=== PATIENT | female | born 1995 | race Caucasian/White ===

== ENCOUNTER 2019-01-19 21:10 | Emergency (ER) | payer BC, OTHER ==
[~2019-01-19] VITALS: Ht 175.3 cm; Wt 63.5 kg
[2019-01-19 21:38] LABS: BASOPHILS # (AUTO) 0.1 10^3/uL (0.0-0.1); BASOPHILS % (AUTO) 1 % (0-10); EOSINOPHILS # (AUTO) 0.2 10^3/uL (0.0-0.3); EOSINOPHILS % (AUTO) 2 % (0-10); HEMATOCRIT 43 % (35-52); HEMOGLOBIN 14.2 G/DL (11.5-16.0); LYMPHOCYTES # (AUTO) 3.1 X 10^3 (1.0-4.0); LYMPHOCYTES % (AUTO) 27 % (12-44); MEAN CORPUSCULAR HEMOGLOBIN 32 PG (25-34); MEAN CORPUSCULAR HGB CONC 33 G/DL (32-36); MEAN CORPUSCULAR VOLUME 95 FL (80-99); MEAN PLATELET VOLUME 9.5 FL (7.4-10.4); MONOCYTES # (AUTO) 0.9 X 10^3 (0.0-1.0); MONOCYTES % (AUTO) 7 % (0-12); NEUTROPHILS # (AUTO) 7.3 X 10^3 (1.8-7.8); NEUTROPHILS % (AUTO) 64 % (42-75); PLATELET COUNT 328 10^3/uL (130-400); RED CELL DISTRIBUTION WIDTH 12.2 % (10.0-14.5); WHITE BLOOD COUNT 11.6 10^3/uL (4.3-11.0)
[2019-01-19 21:40] LABS: BILIRUBIN,URINE NEGATIVE (NEGATIVE); CLARITY,URINE CLEAR; COLOR,URINE YELLOW; GLUCOSE, URINE (UA) NEGATIVE (NEGATIVE); KETONES,URINE NEGATIVE (NEGATIVE); LEUKOCYTE ESTERASE ,URINE NEGATIVE (NEGATIVE); NITRITE,URINE NEGATIVE (NEGATIVE); PH,URINE 7 (5-9); PROTEIN,URINE 1+ (NEGATIVE); UROBILINOGEN,URINE NORMAL (NORMAL)
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
[2019-01-19 21:58] LABS: ALANINE AMINOTRANSFERASE 14 U/L (0-55); ALBUMIN 4.9 GM/DL (3.2-4.5); ALKALINE PHOSPHATASE 64 U/L (40-136); AMYLASE 39 U/L (25-125); BILIRUBIN,TOTAL 0.6 MG/DL (0.1-1.0); BUN/CREATININE RATIO 8; CALCIUM 9.9 MG/DL (8.5-10.1); CARBON DIOXIDE 21 MMOL/L (21-32); CHLORIDE 109 MMOL/L (98-107); CREATININE SERUM 0.83 MG/DL (0.60-1.30); GFR ESTIMATED > 60; GLUCOSE 100 MG/DL (70-105); POTASSIUM 3.5 MMOL/L (3.6-5.0); SALICYLATE < 5.0 MG/DL (5.0-20.0); SODIUM 144 MMOL/L (135-145); TOTAL PROTEIN 7.3 GM/DL (6.4-8.2)
[2019-01-19 22:04] LABS: AMPHETAMINE SCREEN, URINE NEGATIVE (NEGATIVE); BACTERIA,URINE TRACE /HPF; BARBITURATE SCREEN URINE NEGATIVE (NEGATIVE); BENZODIAZEPINES SCREEN URINE NEGATIVE (NEGATIVE); CANNABINOID SCREEN, URINE NEGATIVE (NEGATIVE); COCAINE SCREEN URINE NEGATIVE (NEGATIVE); METHADONE STAT NEGATIVE (NEGATIVE); METHAMPHETAMINE SCREEN URINE S NEGATIVE (NEGATIVE); OPIATE SCREEN URINE NEGATIVE (NEGATIVE); OXYCODONE STAT NEGATIVE (NEGATIVE); PROPOXYPHENE STAT NEGATIVE (NEGATIVE); TRICYCLIC ANTIDEPRESSANTS SCRE NEGATIVE (NEGATIVE)
[2019-01-19 22:18] LABS: TSH (THYROID ANALYZER) 0.94 UIU/ML (0.35-4.94)
[2019-01-19 22:24] LABS: ACETAMINOPHEN < 10 UG/ML (10-30)
[2019-01-19] MEDS ORDERED: hydrOXYzine (VISTARIL/ATARAX) 25 MG capsule/tablet PO ONE (22:30)
[2019-01-19] MEDS ORDERED: hydrOXYzine (VISTARIL/ATARAX) 25 MG capsule/tablet ONE (22:36)
[2019-01-19 22:57] VITALS: BP 122/88
[2019-01-20] MEDS ORDERED: VENL75CA PO (11:41)
[2019-01-20] MEDS ORDERED: HYDR50TA76 PO (11:41)
== END 2019-01-19 22:58 | disposition home or self-care (01) ==
LOC: ER 21:12
DX: F14.10 Cocaine abuse, uncomplicated (principal); F12.10 Cannabis abuse, uncomplicated; F15.10 Other stimulant abuse, uncomplicated; F41.9 Anxiety disorder, unspecified; Z90.89 Acquired absence of other organs
CPT/HCPCS: 36415; 80053; 80306; 80320; 80329; 81000; 82150; 84443; 84703; 85025; 93005; 93041

== ENCOUNTER 2019-01-20 11:16 | Emergency (ER) | payer BC, OTHER ==
[~2019-01-20] VITALS: Ht 175.3 cm; Wt 63.5 kg
[2019-01-20] MEDS ORDERED: HYDR50TA76 PO (11:41)
[2019-01-20] MEDS ORDERED: VENL75CA PO (11:41)
--- NOTE | 2019-01-20 11:41 | ED Psychosocial ---
General Stated Complaint: ANXIETY Source: patient Exam Limitations: no limitations History of Present Illness Date Seen by Provider: Jan 20, 2019 Time Seen by Provider: 11:38 Initial Comments To ER by private vehicle with reports of anxiety. She was here last night for the same, was not given a prescription, states she would like a prescription for something to control the anxiety. History of drug use this summer which has worsened her anxiety, drug use includes Mollie, cocaine, week, acid. Timing/Duration: constant Severity: moderate Associated Symptoms: insomnia Allergies and Home Medications Allergies Coded Allergies: No Known Drug Allergies (Unverified , 01/19/19) Home Medications Hydroxyzine HCl 50 Mg Tablet, 50 MG PO TID PRN for ANXIETY Prescribed by: LAUREN HEART on 01/20/19 1141 Venlafaxine HCl 75 Mg Cap.er.24h, 75 MG PO DAILY Prescribed by: LAUREN HEART on 01/20/19 1141 Patient Home Medication List Home Medication List Reviewed: Yes Review of Systems Constitutional: see HPI EENTM: see HPI Respiratory: no symptoms reported Cardiovascular: no symptoms reported Genitourinary: no symptoms reported Musculoskeletal: no symptoms reported Skin: no symptoms reported Psychiatric/Neurological: See HPI Past Gxhudhn-Tguriz-Fvkjpf Hx Patient Social History Drug of Choice: COCAINE, "BLANE"/ECSTASY, THC, ACID, ADDERALL Type Used: Cigarettes Recent Hopitalizations: No Seasonal Allergies Seasonal Allergies: No Past Medical History Surgeries: Yes (EAR TUBES, TONSILS AND WISDOM TEETH. ) Ear Surgery, Tonsillectomy Respiratory: No Cardiac: No Neurological: No Reproductive Disorders: No RETAIL BANKER History: IUD Genitourinary: No Gastrointestinal: No Musculoskeletal: No Endocrine: No HEENT: No Cancer: No Psychosocial: Yes Anxiety Physical Exam Capillary Refill : Height, Weight, BMI Height: 5'9.00" Weight: 140lbs. oz. [id number]; BMI Method:Stated General Appearance: WD/WN, no apparent distress, other (talks at a high rate of speed about a variety of subjects) HEENT: PERRL/EOMI, normal ENT inspection Neck: non-tender, full range of motion Respiratory: no respiratory distress, no accessory muscle use Cardiovascular: no murmur, tachycardia Gastrointestinal: normal bowel sounds, non tender, soft Neurologic/Psychiatric: alert, normal mood/affect, oriented x 3 Appearance/Memory: appropriate appearance, neat, no memory impairment, impaired insight Behavior/Eye Contact: cooperative, good eye contact Thoughts/Hallucinations: flight of ideas Skin: normal color, warm/dry She denies suicidal or homicidal thoughts. She was suicidal in high school at one point and was hospitalized for that today she does not have these thoughts. Progress/Results/Core Measures Results/Orders My Orders Orders - LAUREN HEART APRN Alprazolam Tablet (Xanax Tablet) (01/20/19 11:45) Medications Given in ED Current Medications Medications Dose Ordered Sig/Lamberto Route Start Time Stop Time Status Last Admin Dose Admin Alprazolam 0.5 mg ONCE ONCE PO 01/20/19 11:45 01/20/19 11:46 DC 01/20/19 11:45 0.5 MG Departure Impression Primary Impression: Anxiety Disposition: 01 HOME, SELF-CARE Condition: Stable Departure-Patient Inst. Decision time for Depature: 11:40 Referrals: ALEIDA KIMBLE DO (PCP/Family) Primary Care Physician Patient Instructions: Anxiety, Adult (DC) Add. Discharge Instructions: 1. Medication as directed 2. Return to ER for any concerns 3. Scripts Venlafaxine HCl (Effexor Xr) 75 Mg Cap.er.24h 75 MG PO DAILY, #30 CAP Prov: LAUREN HEART APRN 01/20/19 Hydroxyzine HCl (Hydroxyzine HCl) 50 Mg Tablet 50 MG PO TID PRN for ANXIETY, #14 TAB Prov: LAUREN HEART APRN 01/20/19 LAUREN HEART APRN Jan 20, 2019 11:41
[2019-01-20] MEDS ORDERED: ALPRAZolam 0.25 MG (XANAX) TAB PO ONE (11:45)
[2019-01-20 11:50] VITALS: BP 156/128
== END 2019-01-20 11:50 | disposition home or self-care (01) ==
LOC: EDUNIT# 11:16 → ER 11:17
DX: F41.9 Anxiety disorder, unspecified (principal); Z90.89 Acquired absence of other organs
CPT/HCPCS: 99283

== ENCOUNTER 2019-01-21 05:09 | Emergency (ER) | payer BC ==
[~2019-01-21] VITALS: Ht 175.3 cm; Wt 63.5 kg
[~2019-01-21 05:09] MED LIST: HYDR50TA76 PO; VENL75CA PO
[2019-01-21 05:37] LABS: BILIRUBIN,URINE NEGATIVE (NEGATIVE); CLARITY,URINE CLEAR; COLOR,URINE YELLOW; GLUCOSE, URINE (UA) NEGATIVE (NEGATIVE); KETONES,URINE NEGATIVE (NEGATIVE); LEUKOCYTE ESTERASE ,URINE NEGATIVE (NEGATIVE); NITRITE,URINE NEGATIVE (NEGATIVE); PH,URINE 7 (5-9); PROTEIN,URINE NEGATIVE (NEGATIVE); UROBILINOGEN,URINE NORMAL (NORMAL)
[2019-01-21 05:43] LABS: BACTERIA,URINE TRACE /HPF; RBC,URINE RARE /HPF; WBC,URINE RARE /HPF
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
[2019-01-21 05:45] LABS: AMPHETAMINE SCREEN, URINE NEGATIVE (NEGATIVE); BARBITURATE SCREEN URINE NEGATIVE (NEGATIVE); BENZODIAZEPINES SCREEN URINE POSITIVE (NEGATIVE); CANNABINOID SCREEN, URINE NEGATIVE (NEGATIVE); COCAINE SCREEN URINE NEGATIVE (NEGATIVE); METHADONE STAT NEGATIVE (NEGATIVE); METHAMPHETAMINE SCREEN URINE S NEGATIVE (NEGATIVE); OPIATE SCREEN URINE NEGATIVE (NEGATIVE); OXYCODONE STAT NEGATIVE (NEGATIVE); PROPOXYPHENE STAT NEGATIVE (NEGATIVE); TRICYCLIC ANTIDEPRESSANTS SCRE NEGATIVE (NEGATIVE)
[2019-01-21] MEDS ORDERED: OLANZapine 5 MG ODT (ZyPREXA ZYDIS) PO ONE ×2 (05:45→08:15)
[2019-01-21 05:46] LABS: BASOPHILS % (AUTO) 1 % (0-10); EOSINOPHILS # (AUTO) 0.1 10^3/uL (0.0-0.3); EOSINOPHILS % (AUTO) 1 % (0-10); HEMATOCRIT 44 % (35-52); LYMPHOCYTES # (AUTO) 1.7 X 10^3 (1.0-4.0); LYMPHOCYTES % (AUTO) 20 % (12-44); MEAN CORPUSCULAR HEMOGLOBIN 32 PG (25-34); MEAN CORPUSCULAR HGB CONC 34 G/DL (32-36); MEAN CORPUSCULAR VOLUME 94 FL (80-99); MEAN PLATELET VOLUME 9.1 FL (7.4-10.4); MONOCYTES # (AUTO) 0.5 X 10^3 (0.0-1.0); MONOCYTES % (AUTO) 6 % (0-12); NEUTROPHILS # (AUTO) 6.3 X 10^3 (1.8-7.8); NEUTROPHILS % (AUTO) 73 % (42-75); PLATELET COUNT 313 10^3/uL (130-400); RED CELL DISTRIBUTION WIDTH 12.2 % (10.0-14.5); WHITE BLOOD COUNT 8.6 10^3/uL (4.3-11.0)
[2019-01-21 06:21] LABS: ACETAMINOPHEN < 10 UG/ML (10-30); ALANINE AMINOTRANSFERASE 15 U/L (0-55); ALBUMIN 5.1 GM/DL (3.2-4.5); ALKALINE PHOSPHATASE 63 U/L (40-136); BILIRUBIN,TOTAL 0.9 MG/DL (0.1-1.0); BUN/CREATININE RATIO 7; CALCIUM 10.4 MG/DL (8.5-10.1); CARBON DIOXIDE 18 MMOL/L (21-32); CHLORIDE 106 MMOL/L (98-107); CREATININE SERUM 0.86 MG/DL (0.60-1.30); GFR ESTIMATED > 60; GLUCOSE 116 MG/DL (70-105); POTASSIUM 3.2 MMOL/L (3.6-5.0); SALICYLATE < 5.0 MG/DL (5.0-20.0); SODIUM 139 MMOL/L (135-145); TOTAL PROTEIN 7.5 GM/DL (6.4-8.2)
[2019-01-21 06:44] LABS: TSH (THYROID ANALYZER) 0.75 UIU/ML (0.35-4.94)
[2019-01-21] MEDS ORDERED: KCL 10 MEQ TAB (MICRO K) PO ONE (06:45)
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
--- NOTE | 2019-01-21 07:17 | NUR ---
Called [facility] for bed-none available. [id number] LM for [facility] in [place]
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
--- NOTE | 2019-01-21 08:13 | NUR ---
Called [facility]
--- NOTE | 2019-01-21 08:24 | NUR ---
[facility] called-LM
--- NOTE | 2019-01-21 08:50 | NUR ---
Pt information faxed to [facility]
--- NOTE | 2019-01-21 08:52 | NUR ---
Pt sleeping; will continue to monitor.
--- NOTE | 2019-01-21 09:40 | NUR ---
[facility] accepting pt to Dr. Anshul Suero.
--- NOTE | 2019-01-21 09:45 | NUR ---
Pt still sleeping
--- NOTE | 2019-01-21 09:45 | NUR ---
Marleen Lang notified of acceptance to [facility]. Marleen will be here between [id number] for transportation.
[2019-01-21] MEDS ORDERED: hydrOXYzine (VISTARIL/ATARAX) 25 MG capsule/tablet PO ONE (10:30)
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
[2019-01-21] MEDS ORDERED: ZIPRASIDONE 20 MG INJ (GEODON) VIAL IM ONE ×2 (12:01→12:15)
[2019-01-21] MEDS ORDERED: WATER (STERILE) FOR INJECTION 10 ML ONE (12:02)
--- NOTE | 2019-01-21 12:02 | NUR ---
Pt outside of room yelling for mom and dad. Pt asked to go back to room; pt compliant.
[2019-01-21] MEDS ORDERED: LORazepam INJ 2 MG/ML (ATIVAN) VIAL ONE (13:01)
[2019-01-21] MEDS ORDERED: LORazepam INJ 2 MG/ML (ATIVAN) VIAL IVP ONE (13:15)
--- NOTE | 2019-01-21 14:07 | NUR ---
Pt sleeping. Pt's vitals checked at this time. P 105, 99% O2 room air, BP 102/57. Will continue to monitor.
[2019-01-21 15:30] VITALS: BP 105/59
--- NOTE | 2019-01-21 15:32 | NUR ---
Pt requested friend, Constanza, be called and informed of transfer.
--- NOTE | 2019-01-21 15:37 | NUR ---
Attempted to call report. Nurse unavailable.
== END 2019-01-21 15:35 | disposition short-term general hospital (02) ==
LOC: EDUNIT# 05:09 → ER 05:11
DX: F23 Brief psychotic disorder (principal); F30.9 Manic episode, unspecified; F22 Delusional disorders; F41.9 Anxiety disorder, unspecified; F43.10 Post-traumatic stress disorder, unspecified; F14.10 Cocaine abuse, uncomplicated; F16.10 Hallucinogen abuse, uncomplicated; F12.10 Cannabis abuse, uncomplicated; F15.10 Other stimulant abuse, uncomplicated; F17.210 Nicotine dependence, cigarettes, uncomplicated; Z90.89 Acquired absence of other organs
CPT/HCPCS: 36415; 80053; 80306; 80320; 80329; 81000; 84443; 84703; 85025; 93005